=== PATIENT | female | born 1960 | race Caucasian/White ===

== ENCOUNTER → 2020-07-23 | Outpatient (CLI) | payer MEDICARE, OTHER ==
--- NOTE | 2020-07-24 07:20 | US ---
EXAMINATION TYPE: US st tissue head/neck DATE OF EXAM: 07/23/2020 COMPARISON: NONE CLINICAL HISTORY: R22.1 swelling. Patient c/o swelling upper lateral right neck about 1 month ago, bu t symptoms have decreased since then. US Bilateral upper neck: multiple lymph nodes are seen upper lateral right neck at area of patient's concern. Longest right lymph node seen = 1.7 x 0.6 x 0.2cm. Lymph node was seen upper left neck for comparison with size = 2.0 x 1.1 x 0.7cm. IMPRESSION: Soft tissue nodule seen in the neck likely related to small lymph nodes.
== END | disposition home or self-care (01) ==
LOC: RADUSWWP 16:23
PROVIDERS: ATTEND Family Medicine
DX: R22.1 Localized swelling, mass and lump, neck (principal)
CPT/HCPCS: 76536